=== PATIENT | male | born 1965 | race American Indian/Alaskan Native ===

== ENCOUNTER → 2017-06-06 | Outpatient (CLI) | payer OTHER | END | disposition home or self-care (01) | LOC: EDSEX 09:00 → RAD 09:00 | PROVIDERS: ATTEND Internal Medicine Hematology & Oncology | DX: Z45.2 Encounter for adjustment and management of vascular access device (principal); Z51.11 Encounter for antineoplastic chemotherapy; C61 Malignant neoplasm of prostate | CPT/HCPCS: 36569; 76937; 77001; C1751 ==